=== PATIENT | male | born 1980 | race Caucasian/White ===

== ENCOUNTER 2023-04-02 18:58 | Emergency (ER) | payer OTHER ==
[~2023-04-02] VITALS: Ht 180.3 cm; Wt 99.8 kg
[2023-04-02 19:15] VITALS: BP 134/77; PULSE 85; RESP 20; TEMP 98.1; O2SAT 97
[2023-04-02] MEDS ORDERED: KETOROLAC 30 MG/ML VIAL IM ONE (19:25)
[2023-04-02] MEDS ORDERED: LIDOCAINE 5% 1 EA PATCH TP SCH (19:25)
[2023-04-02] MEDS ORDERED: CYCLOBENZAPRINE 10 MG TAB PO ONE (19:25)
[2023-04-02] MEDS ORDERED: CYCL-711 PO (20:50)
[2023-04-02 21:15] VITALS: BP 134/77; PULSE 85; RESP 20; TEMP 98.1; O2SAT 97
== END 2023-04-02 21:15 | disposition home or self-care (01) ==
LOC: MED 18:58
DX: M79.651 Pain in right thigh (principal); I10 Essential (primary) hypertension; Z79.899 Other long term (current) drug therapy
CPT/HCPCS: 96372; 99283; J1885